=== PATIENT | female | born 1985 | race Hispanic/Latino ===

== ENCOUNTER 2022-08-01 13:55 | Emergency (ER) | payer BC ==
[~2022-08-01] VITALS: Ht 160 cm; Wt 61.2 kg
[2022-08-01] MEDS ORDERED: KETOROLAC TROMETHAMINE 30 MG/ML VIAL IV STA (14:34)
[2022-08-01] MEDS ORDERED: KETOROLAC TROMETHAMINE 30 MG/ML VIAL ONE (15:35)
[2022-08-01] MEDS ORDERED: KETOROLAC TROME10 MG PO (16:10)
[2022-08-01] MEDS ORDERED: CIPRO500 MG PO (16:10)
== END 2022-08-01 16:39 | disposition home or self-care (01) ==
LOC: FSED 14:21
DX: R10.11 Right upper quadrant pain (principal); K80.80 Other cholelithiasis without obstruction; Z98.84 Bariatric surgery status
CPT/HCPCS: 74176; 80048; 80076; 81003; 81025; 85025; 99284; J1885